=== PATIENT | male | born 1980 | race Caucasian/White ===

== ENCOUNTER → 2019-02-12 09:04 | Outpatient (CLI) | payer OTHER, SELFPAY ==
--- NOTE | 2019-02-12 09:16 | US_ITS ---
US gallbladder HISTORY: Right upper quadrant pain with vomiting ITS.REASON: RUQ pain ORDERING PHYSICIAN: Robin Webber MD PATIENT AGE: 38 years Comparison: None FINDINGS: PANCREAS: Unremarkable. No obvious mass or abnormal fluid collection. No ductal dilatation LIVER: No focal liver lesions demonstrated. Homogeneous echogenicity. No intrahepatic biliary ductal dilatation evident RIGHT KIDNEY: Unremarkable. Normal size and echogenicity. No hydronephrosis GALLBLADDER: The gallbladder is contracted and is filled with stones. No gallbladder wall thickening or pericholecystic fluid is evident. Common bile duct is normal IMPRESSION: Contracted gallbladder filled with stones. No pericholecystic fluid, gallbladder wall thickening, or biliary dilatation
== END ==
PROVIDERS: PCP Internal Medicine Adolescent Medicine; Visit Provider Surgery
DX: K80.20 Calculus of gallbladder without cholecystitis without obstruction (principal)
CPT/HCPCS: 76705

== ENCOUNTER → 2020-08-11 09:20 | Outpatient (CLI) | payer OTHER, SELFPAY ==
[2020-08-11 10:04] LABS: Chol/HDL Ratio 4.1 (1-3.5); Cholesterol 144 mg/dl (140-200); HDL Cholesterol 35 mg/dl (40-60); Triglycerides 148 mg/dl (30-150); VLDL Cholesterol 30 mg/dL (0-40)
[2020-08-11 10:15] LABS: Direct LDL Cholesterol 85.89 mg/dL (100-129)
[2020-08-11 10:51] LABS: Hemoglobin A1C 5.2 % (4.0-6.0)
[2020-08-11 11:08] LABS: Chloride 102 mmol/L (98-107)
[2020-08-11 11:09] LABS: Potassium 4.5 mmoL/L (3.5-5.1); Sodium 138 mmol/L (136-145)
[2020-08-11 11:11] LABS: Alanine Aminotransferase 37 U/L (12-78); Alkaline Phosphatase 62 U/L (38-126); Anion Gap 12.5 mEq/L (5-15); Aspartate Amino Transferase 25 U/L (17-59); Basophils # 0.1 K/mm3 (0-0.2); Basophils % 0.8 % (0.1-2.0); Bilirubin,Total 0.5 mg/dl (0.2-1.3); Blood Urea Nitrogen 15 mg/dl (9-20); Carbon Dioxide 28 mmol/L (22.0-30.0); Eosinophils # 0.1 K/mm3 (0.0-0.4); Eosinophils % 0.9 % (0.1-12.0); Estimated Glomerular Filt Rate 84 ml/min (>60); GFR (African American) 101 ML/MIN (>60); Hematocrit 50.9 % (42.0-52.0); Hemoglobin 17.6 g/dL (14.1-18.0); Lymphocytes # 2.5 K/mm3 (0.7-4.5); Lymphocytes % 29.7 % (10-50); Mean Corpuscular HGB Conc 34.6 g/dL (31.8-35.4); Mean Corpuscular Hemoglobin 32.6 pg (27.0-31.2); Mean Platelet Volume 8.2 fl (7.4-10.4); Monocytes # 0.3 K/mm3 (0.1-1.0); Monocytes % 3.7 % (1.7-9.3); Neutrophils # 5.6 K/mm3 (1.8-7.8); Platelet Count 247 K/mm3 (142-424); Red Blood Count 5.41 M/mm3 (4.60-6.20); Red Cell Distribution Width 13.2 % (11.5-17.5); White Blood Count 8.6 K/mm3 (4.8-10.8)
[2020-08-11 11:12] LABS: Albumin Level 4.4 g/dl (3.5-5.0); Albumin/Globulin Ratio 1.7 (1.1-1.8); Calcium 9.6 mg/dl (8.4-10.2); Globulin 2.6 g/dL (1.3-3.2); Glucose 105 mg/dl (74-100)
== END ==
PROVIDERS: Visit Provider Nurse Practitioner Family
DX: I10 Essential (primary) hypertension (principal); R73.9 Hyperglycemia, unspecified; Z72.0 Tobacco use
CPT/HCPCS: 36415; 80053; 80061; 83036; 85025

== ENCOUNTER → 2021-10-17 09:58 | Outpatient (CLI) | payer OTHER, SELFPAY | PROVIDERS: PCP Internal Medicine Adolescent Medicine; Visit Provider Nurse Practitioner | DX: U07.1 COVID-19 (principal) | CPT/HCPCS: C9803; U0003; U0005 ==

== ENCOUNTER → 2021-12-21 08:53 | Outpatient (CLI) | payer OTHER, SELFPAY ==
--- NOTE | 2021-12-21 08:56 | XR_ITS ---
FINAL REPORT CLINICAL HISTORY: SOB,COUGH,TOBACCO USE FINDINGS: Two views of the chest were obtained. The heart size and pulmonary vascularity are within normal limits. The mediastinum is normal. No acute pulmonary abnormality is identified. There is no pneumothorax. The bony thorax is intact. IMPRESSION: No active cardiopulmonary disease. Reviewed, Interpreted and Dictated by Robin Ram III, MD Transcribed by Abby Sheppard Authenticated by Robin Ram III, MD on 12/21/2021 01:14:20 PM [facility]
== END ==
PROVIDERS: PCP Internal Medicine Adolescent Medicine; Visit Provider Nurse Practitioner Family
DX: R06.02 Shortness of breath (principal); R05.9 Cough, unspecified; Z72.0 Tobacco use
CPT/HCPCS: 71046

== ENCOUNTER → 2022-01-05 08:19 | Outpatient (CLI) | payer OTHER, SELFPAY ==
--- NOTE | 2022-01-05 08:22 | CA_ITS ---
APPROVED REPORT EXAM: Comprehensive 2D, Doppler, and color-flow Echocardiogram [employer] Manager: Naa [place] RVT Ht: 6 ft 3 in Wt: 285lbs BSA: 2.55 BP: 125/75 mmHg Indications: SOA,HTN,SMOKER,HX COVID 12/29 2D Dimensions LVOT 2.66 cm (M/F) 1.5-2.5 LA Volume 34.40 mL LA Volume Index 13.49 mL/m2 (M/F) 16-34 M-Mode Dimensions RVDd 2.88 cm (0.9-2.6) LA Diam 3.77 cm (1.9-4.0) LVDd 3.78 cm (3.5-5.7) Ao Diam 3.51 cm (2.0-3.7) LVDs 2.25 cm (3.5-5.7) IVSd 1.19 cm (0.6-1.1) PWd 1.44 cm (0.6-1.1) EF (Teich) 72.10% FS 40.50% EDV (Teich) 61.20 mL TAPSE 2.26 (<1.7) ESV (Teich) 17.10 mL LV Diastology E Decel Time 257.00 (160-240 msec) E/A Ratio 1.0 MED E' 8.70 (< 7 cm/sec) E'/MED E' Ratio 7.84 (>14) LAT E' 13.30 (<10 cm/sec) E/LAT E' Ratio 5.13 (>14) Aortic Valve AO Peak GR. 3.90 mmHg Mitral Valve MV E Max Sharan. 68.00 (40-130 cm/s) MV A Velocity 70.00 (40-130 cm/s) E/A Ratio 0.98 MV Decel. Time 257.00 (160-240 ms) MV PHT 75.00 ms Pulmonary Valve PV Peak Velocity 81.00 (50-150 cm/s) Tricuspid Valve TR P. Velocity 103.00 cm/s RAP Estimate 10.00 mmHg RVSP 14.20 mmHg Left Ventricle Left atrium is normal size, left ventricle is normal size, visually estimated ejection fraction 55% with no regional wall motion abnormality, diastolic parameters are within normal range. Right Ventricle Right atrium and right ventricle are normal size and contractility. Aortic Valve Aortic valve is minimally thickened and fibrosed, there is no aortic stenosis or aortic insufficiency. Mitral Valve Mitral valve grossly normal, there is trace mitral regurgitation. Tricuspid Valve Tricuspid valve grossly normal, there is trace tricuspid regurgitation, tricuspid regurgitation jet versus inadequate for calculation of the right ventricular systolic pressure. Pulmonic Valve Pulmonic valve is poorly visualized. Great Vessels Aortic root is normal size. Inferior vena cava normal size with normal inspiratory collapse. Pericardium No significant pericardial effusion noted. Conclusion 1. Normal left ventricular size, preserved left ventricular systolic function, visually estimated ejection fraction 55% with no regional wall motion abnormality, diastolic parameters are within normal range. 2. Trace mitral and tricuspid regurgitation. 3. No significant pericardial effusion. 4. Inferior vena cava is normal size with normal inspiratory collapse. Electronically signed by : Mario Elizabeth MD 01/05/2022 19:29:13
== END ==
PROVIDERS: PCP Internal Medicine Adolescent Medicine; Visit Provider Nurse Practitioner Family
DX: R06.02 Shortness of breath (principal); I10 Essential (primary) hypertension
CPT/HCPCS: 93306

== ENCOUNTER → 2022-01-18 17:11 | Outpatient (CLI) | payer OTHER, SELFPAY ==
--- NOTE | 2022-01-18 17:18 | XR_ITS ---
PROCEDURE INFORMATION: Exam: XR Left Knee Exam date and time: 01/18/2022 5:19 PM Age: 41 years old Clinical indication: Pain; Knee; Left; Additional info: Left anterior knee pain TECHNIQUE: Imaging protocol: XR Left knee. Views: 3 views. COMPARISON: No relevant prior studies available. FINDINGS: Bones/joints: Normal. Soft tissues: Normal. IMPRESSION: No acute findings.
== END ==
PROVIDERS: PCP Internal Medicine Adolescent Medicine; Visit Provider Internal Medicine Adolescent Medicine
DX: M25.562 Pain in left knee (principal)
CPT/HCPCS: 73562

== ENCOUNTER 2024-06-27 15:41 | Outpatient (CLI) | payer OTHER, SELFPAY ==
--- NOTE | 2024-06-27 15:57 | XR_ITS ---
FINAL REPORT TECHNIQUE: Chest PA & Lateral CLINICAL HISTORY: DYSPNEA WHEEZING FINDINGS: 2 views of the chest were performed. The heart size is normal. The mediastinum is within normal limits. There is no acute cardiopulmonary process. There are no pleural effusions. There is no pneumothorax. The bony thorax appears intact. IMPRESSION: No acute cardiopulmonary process. Authenticated and ERN
== END 2024-06-27 23:59 | disposition home or self-care (01) ==
LOC: RAD 15:48
PROVIDERS: PCP Internal Medicine Adolescent Medicine; Visit Provider Internal Medicine Adolescent Medicine
DX: R06.2 Wheezing (principal); R06.00 Dyspnea, unspecified
CPT/HCPCS: 71046

== ENCOUNTER 2024-07-02 14:45 | Outpatient (CLI) | payer OTHER, SELFPAY ==
[2024-07-02 15:35] VITALS: PULSE 77
[2024-07-02] MEDS: ALBUTEROL 0.083% 2.5 MG/3 ML NEB IH (15:35)
== END 2024-07-02 23:59 | disposition home or self-care (01) ==
LOC: RT 14:45
PROVIDERS: PCP Internal Medicine Adolescent Medicine; Visit Provider Internal Medicine Adolescent Medicine
DX: R06.02 Shortness of breath (principal); R05.1 Acute cough
CPT/HCPCS: 94060; 94640; 94726; 94729; J7613